=== PATIENT | male | born 2005 ===

== ENCOUNTER 2025-03-20 09:55 | Outpatient (RCR) | payer BC, SELFPAY | END 2025-07-18 23:59 | disposition home or self-care (01) | PROVIDERS: Visit Provider Family Medicine | DX: M25.641 Stiffness of right hand, not elsewhere classified (principal); M25.642 Stiffness of left hand, not elsewhere classified; Z51.89 Encounter for other specified aftercare | CPT/HCPCS: 97165; 97535 ==